=== PATIENT | female | born 1960 | race Caucasian/White ===

== ENCOUNTER 2016-06-26 16:21 | Emergency (ER) | payer OTHER ==
[~2016-06-26] VITALS: Ht 154.9 cm; Wt 90.9 kg
[2016-06-26] MEDS ORDERED: NAPR-58 PO (17:08)
[2016-06-26 20:07] VITALS: BP 146/85
== END 2016-06-26 20:32 | disposition home or self-care (01) ==
LOC: EMS 16:26
DX: B02.9 Zoster without complications (principal); M54.5 Low back pain; F17.210 Nicotine dependence, cigarettes, uncomplicated
CPT/HCPCS: 99283